=== PATIENT | male | born 1950 | race Caucasian/White ===

== ENCOUNTER 2019-03-06 10:17 | Emergency (ER) | payer OTHER ==
[~2019-03-06] VITALS: Ht 170.2 cm; Wt 74.8 kg
[2019-03-06] MEDS ORDERED: [UNRECOGNIZED DRUG - OTHER] (10:34)
[2019-03-06 10:52] LABS: ABSOLUTE BASOPHILS 0.1 thou/uL (0.0-0.2); ABSOLUTE EOSINOPHILS 0.1 thou/uL (0.0-0.7); ABSOLUTE LYMPHOCYTES 1.5 thou/uL (0.8-5.3); ABSOLUTE MONOCYTES 0.6 thou/uL (0.0-1.2); ABSOLUTE NEUTROPHILS 2.3 thou/uL (1.6-8.1); BASOPHILS 1.1 %; EOSINOPHILS 1.2 %; HEMOGLOBIN 15.2 gm/dL (14.0-18.0); LYMPHOCYTES 33.6 %; MCHC 34.6 g/dL (28.0-37.0); MCV 92.4 fL (80.0-100.0); MONOCYTES 14.1 %; MPV 8.7 fl. (7.2-11.1); NUCLEATED RBCS 0 /100WBC; PLATELET COUNT* 145 thou/uL (150-400); RBC 4.76 mil/uL (4.50-6.00); RDW-CV 12.9 % (10.5-14.5); WBC 4.6 thou/uL (4.0-11.0)
[2019-03-06 10:58] LABS: CALCIUM 8.9 mg/dL (8.5-10.1); INR 1.1; POTASSIUM 3.9 mmol/L (3.5-5.1); PROTIME 10.8 Seconds (9.20-11.50)
[2019-03-06 11:05] LABS: ALBUMIN 3.7 g/dL (3.4-5.0); TOTAL BILIRUBIN 1.2 mg/dL (<0.1-1.0); TOTAL PROTEIN 6.8 g/dL (6.4-8.2)
[2019-03-06] MEDS ORDERED: ASPIR 8181 MG PO (12:32)
[2019-03-06] MEDS ORDERED: CARDIZEM CD 18180 M3 PO (12:32)
[2019-03-06 12:48] VITALS: BP 103/71
--- NOTE | 2019-03-06 15:29 | EKG ---
[place] [address] ELECTROCARDIOGRAM REPORT Name: CT JOHNSON [id number] Admission: 03/06/19 Attend Phys: Discharge: 03/06/19 Date of : 50 Report #: [id number] THIS REPORT FOR: //name// [facility] ED Test Date: 2019-03-06 Test Time: 11:08:29 Pat Name: CT JOHNSON Department: Room: Gender: M [employer]: [email or web address] : 1950 Requested By: Peg Byrne Order Number: [id number] MD: Spencer Juan Measurements Intervals [place] Rate: 117 P: IN: QRS: -64 QRSD: 108 T: 70 QT: 339 QTc: 473 Interpretive Statements Atrial fibrillation with pvc Left anterior fascicular block Abnormal R-wave progression, late transition No previous ECG available for comparison Electronically Signed On 03-06-2019 15:28:56 CDT by Spencer Juan [email or web address] <ELECTRONICALLY SIGNED> By: Spencer Juan MD, [facility] 03/06/19 1528 1108 07 Spencer Juan MD, FACC /EPI
== END 2019-03-06 12:48 | disposition left against medical advice (07) ==
LOC: M.ERS 10:17
PROVIDERS: Nurse Practitioner Family
DX: S51.811A Laceration without foreign body of right forearm, initial encounter (principal); R55 Syncope and collapse; I48.91 Unspecified atrial fibrillation; W22.8XXA Striking against or struck by other objects, initial encounter; Y93.89 Activity, other specified; Y92.89 Other specified places as the place of occurrence of the external cause; Y99.8 Other external cause status